=== PATIENT | female | born 1980 | race Caucasian/White ===

== ENCOUNTER 2024-10-16 05:43 | Emergency (ER) | payer OTHER, SELFPAY ==
[2024-10-16 05:44] VITALS: BP 114/78
[2024-10-16 06:18] LABS: Hematocrit 38.8 % (37.0-47.0); Hemoglobin 12.6 g/dL (12.0-16.0); Mean Corp Hgb Conc. 32.5 g/dL (33.0-37.0); Mean Corpuscular Volume 77.1 fL (81.0-99.0); Nucleated Red Blood Cells % 0 %; Platelet Count 237 10^3/uL (130-400); Red Cell Dist. Width 14.6 % (11.5-14.5)
[2024-10-16 06:20] LABS: Urine Character Clear (Clear)
[2024-10-16 06:25] LABS: HCG, Serum Qualitative Screen Negative
[2024-10-16 06:43] LABS: Urine Red Blood Cell 0-2 /HPF (0-2); Urine Squamous Cell 16-20 /LPF (Few); Urine White Cell 0-2 /HPF (0-5)
[2024-10-16 06:45] LABS: ALT (SGPT) 15 U/L (0-35); AST (SGOT) 21 U/L (14-36); Albumin 4.5 g/dl (3.5-5.0); Alkaline Phosphatase 68 U/L (38-126); Blood Urea Nitrogen 11 mg/dl (7-17); Calcium 9.5 mg/dl (8.4-10.2); Carbon Dioxide 21 mmol/L (22-30); Chloride 107 mmol/L (98-107); Glucose 128 mg/dl (70-99); Potassium 3.9 mmol/L (3.5-5.1); Sodium 139 mmol/L (135-145); Total Protein 8.6 g/dl (6.3-8.2); eGFR > 60.00
--- NOTE | 2024-10-16 08:29 | ED.GENMED ---
History of Present Illness
General
Chief Complaint: Abdominal Symptoms
Source: patient
Exam Limitations: none
Time Seen by Provider: 10/16/24 08:03
Nursing documentation reviewed up to this point in time: agreed with
History of Present Illness
History of Present Illness:
Patient is a 44-year-old presents to the ED c/o of nausea vomiting since around 11 PM last night. She had some diarrhea. She denies any fever or chills. She denies any abdominal pain. She denies any urinary frequency urgency or dysuria.
Upon my evaluation patient feels slightly improved. She has not had anything to drink at all. No sick contacts at home. No marijuana or drug use.
Patient with IUD.
Phy Exam
General Physical Exam
General Presentation: no apparent distress
General age: appears stated age
General Skin: warm and dry
General Habitus: normal
General Mental: alert
General Hydration: dry mucous membranes
Cardiovascular Exam
Cardiovascular Exam: regular rate/rhythm, no murmur and normal peripheral pulses
Pulmonary Exam
Pulmonary Exam: lungs clear and no respiratory distress
Gastrointestinal Exam
Gastrointestinal Exam: non tender and soft
Neurological Exam
Neurological Exam: alert and oriented x3
Musculoskeletal Exam
Musculoskeletal Exam: full ROM
Skin Exam
Skin Exam: normal color and warm/dry
Psychiatric Exam
Psychiatric Exam: normal mood/affect
Course
Orders/Labs/Results
Orders:
Orders
10/16/24 05:47
Test Result ONCE
10/16/24 05:54
Complete Blood Count/With Diff Urgent
Comprehensive Metabolic Panel Urgent
HCG, Serum Qualitative Screen Urgent
Urinalysis Urgent
Date Specimen was Collected: 10/16/24
Time Specimen was Collected: 05:47
Urine Microscopic Urgent
Date Specimen was Collected: 10/16/24
Time Specimen was Collected: 05:47
10/16/24 08:28
0.9% Sodium Chloride 1000 ml [Nss] 1,000 ml IV BOLUS
Ondansetron Injectable [Zofran] 4 mg IV NOW STA
Abnormal Lab Results
10/16/24
05:54
MCV 77.1 L fL
(81.0-99.0)
MCH 25.0 L pg
(27.0-31.0)
MCHC 32.5 L g/dL
(33.0-37.0)
RDW 14.6 H %
(11.5-14.5)
MPV 10.7 H fL
(7.4-10.4)
Carbon Dioxide 21 L mmol/L
(22-30)
Glucose 128 H mg/dl
(70-99)
Total Protein 8.6 H g/dl
(6.3-8.2)
Urine Occult Blood 1+ A
(Negative)
Urine Bacteria Moderate A
(Negative)
Urine Albumin 1+ A
(Neg - Trace)
10/16/24 05:54
10/16/24 05:54
Vital Signs
Initial and Last Documented VS:
Initial Vital Signs
Temp Pulse Resp BP Pulse Ox
97.6 F 98 24 114/78 100
10/16/24 05:44 10/16/24 05:44 10/16/24 05:44 10/16/24 05:44 10/16/24 05:44
Last Documented Vital Signs
Temp Pulse Resp BP Pulse Ox
97.6 F 75 17 124/82 99
10/16/24 05:44 10/16/24 10:33 10/16/24 10:33 10/16/24 10:33 10/16/24 10:33
MDM/Problems Addressed
Differential Diagnosis Includes:
Not limited to viral gastroenteritis, dehydration
MDM/Problems Addressed:
Symptoms are consistent with likely viral syndrome. Patient feeling better after being monitored here given fluids and Zofran. Tolerating oral fluids. No s/s of UTI.
will DC with Zofran prescription close outpatient follow-up PCP
*Pulse Oximetry
SaO2: 100
Oxygen Mode of Delivery: Room air
Patient hypoxic: no
*Critical Care Note
Total Time (30-74mins, 75-104mins- exclusive of procedures): Not Applicable
ED Attending Note
-
Portions of this chart may have been created with voice recognition software.� Occasional wrong word or��sound alike� substitutions may have occurred due to the inherent limitations of voice recognition software.
Discharge Plan
Departure
Patient Disposition: Home (Routine Discharge)
Date of Disposition: 10/16/24
Time of Disposition: 10:19
Patient with high blood pressure during this ER visit?: No
Condition: Fair
Covid-19: Not Applicable
Discharge Problem:
Nausea & vomiting
Instructions: Nausea and Vomiting, Adult (DC)
Prescriptions:
New
ondansetron 4 mg tablet,disintegrating
4 mg PO Q8H PRN (Reason: nausea and vomiting) Qty: 7 0RF
Referrals:
Tamie Staples CRNP [Family Provider, General]
Activity Restrictions/Additional Instructions:
As discussed you may take Zofran for nausea as needed. This medication was sent to pharmacy.
Clear fluids for the next 24 hours, followed by bland solid foods.
Follow-up with your family doctor in the next several days for reevaluation .
return if any worsening of symptoms
Interventions
Interventions:
*Risk Screen - Suicide Last Done: 10/16/24 05:44
*General Assessment Last Done: 10/16/24 08:55
*Neglect/Abuse Screening Last Done: 10/16/24 05:44
*ED COVID-19 Vaccine History Last Done: 10/16/24 08:55
*Nursing Disposition Last Done: 10/16/24 10:33
PN-Kvjcgj-Wylreeygkg Assessment Last Done: 10/16/24 08:55
Discharge Date and Time
Discharge Date/Time: 10/16/24 10:45
Print Language: SENEGALESE
[2024-10-16 08:53] VITALS: BMI 28.0
[2024-10-16 08:56] VITALS: BP 108/74
[2024-10-16] MEDS: NSS 1000 IV (08:57)
[2024-10-16] MEDS: ZOFRAN 4 MG IV (09:00)
[2024-10-16 10:33] VITALS: BP 124/82
== END 2024-10-16 10:45 | disposition home or self-care (01) ==
LOC: EMR 05:43
PROVIDERS: Emergency Medicine; EMERGENCY PHYSICIAN Emergency Medicine; FAMILY PHYSICIAN Nurse Practitioner
DX: R11.2 Nausea with vomiting, unspecified (principal)
CPT/HCPCS: 99284; 96374; 96361; 80053; 81003; 81015; 84703; 85025